=== PATIENT | female | born 1950 | race Two or more races ===

== ENCOUNTER 2018-04-16 07:28 | Day surgery (SDC) | payer OTHER ==
[~2018-04-16 07:28] MED LIST: CEFAZOLIN 1 GM INJ; DESFLURANE 15 MIN; DEXAMETHASONE 4 MG/ML 5 ML INJ; GLYCOPYRROLATE 0.4 MG INJ; NEOSTIGMINE 3 MG/3 ML SYRINGE; ONDANSETRON 4 MG INJ
[2018-04-16] MEDS ORDERED: FENTAnyl 50 MCG/ML VIAL (08:15)
[2018-04-16] MEDS ORDERED: MIDAZOLAM 1 MG/ML 2 ML INJ (08:15)
[2018-04-16] MEDS ORDERED: ROCURONIUM 50 MG INJ (08:16)
[2018-04-16] MEDS ORDERED: PROPOFOL 20 ML (08:16)
[2018-04-16] MEDS ORDERED: ROPIVACAINE 0.5 % 30 ML VIAL (08:16)
[2018-04-16] MEDS ORDERED: SUCCINYLCHOLINE CHLORIDE 100 MG/5 ML SYG IV (08:16)
[2018-04-16] MEDS ORDERED: LIDOCAINE 2% (SDV) 5 ML INJ (08:16)
[2018-04-16] MEDS ORDERED: METOCLOPRAMIDE 10 MG INJ (08:16)
[2018-04-16] MEDS: IPRATROPIUM (NEB) 0.5 MG/2.5 ML AMP HHN (08:40)
[2018-04-16] MEDS: LEVALBUTEROL (NEB) 1.25 MG/0.5 ML AMP HHN (08:40)
[2018-04-16] MEDS ORDERED: IPRATROPIUM (NEB) 0.5 MG/2.5 ML AMP HHN (09:30)
[2018-04-16] MEDS ORDERED: LABETALOL HCL 20MG INJ IV (09:30)
[2018-04-16] MEDS ORDERED: DIPHENHYDRAMINE 50 MG INJ IV (09:30)
[2018-04-16] MEDS ORDERED: HYDROmorphONE 1 MG/5 ML IV SYRINGE IV (09:30)
[2018-04-16] MEDS ORDERED: KETOROLAC 30 MG INJ IV (09:30)
[2018-04-16] MEDS ORDERED: hydrALAzine 20 MG INJ IV (09:30)
[2018-04-16] MEDS ORDERED: FENTAnyl 50 MCG/ML VIAL IV ×2 (09:30)
[2018-04-16] MEDS ORDERED: LEVALBUTEROL (NEB) 1.25 MG/0.5 ML AMP HHN (09:30)
[2018-04-16] MEDS: BUPIVACAINE 0.5%/EPI (SDV) 30 ML INJ (09:59)
[2018-04-16] MEDS ORDERED: morphine 2 MG INJ IV (10:30)
[2018-04-16] MEDS ORDERED: OXYCODONE/ACETAMINOPHEN (5/325) TAB PO (10:30)
[2018-04-16] MEDS ORDERED: ONDANSETRON 4 MG INJ IV (10:30)
[2018-04-16] MEDS: MEPERIDINE 25 MG INJ IV (10:55)
[2018-04-16] MEDS: ONDANSETRON 4 MG INJ IV (10:56)
[2018-04-16] MEDS: HYDROmorphONE 1 MG/5 ML IV SYRINGE IV ×3 (10:57→11:13)
[2018-04-16] MEDS: OXYCODONE/ACETAMINOPHEN (5/325) TAB PO (11:49)
== END 2018-04-16 12:43 | disposition home or self-care (01) ==
LOC: SDS 07:28
DX: K80.10 Calculus of gallbladder with chronic cholecystitis without obstruction (principal); I10 Essential (primary) hypertension; E78.5 Hyperlipidemia, unspecified; K21.9 Gastro-esophageal reflux disease without esophagitis; F17.210 Nicotine dependence, cigarettes, uncomplicated; R05 Cough
CPT/HCPCS: 47562; 82962; 88304; 94664

== ENCOUNTER 2018-09-26 11:11 | Emergency (ER) | payer OTHER ==
[2018-09-26 12:52] LABS: WHITE BLOOD COUNT 12.6 10^3/ul (4.8-10.8)
[2018-09-26 12:52] LABS: ABNORMAL IP MESSAGE 1; ADD MAN DIFF? NO; BASOPHIL # 0.1 10^3/ul (0.0-0.1); BASOPHILS % 0.8 % (0.0-2.0); EOSINOPHILS # 2.1 10^3/ul (0.0-0.5); HEMATOCRIT 36.3 % (37.0-47.0); HEMOGLOBIN 11.9 g/dl (12.0-16.0); LYMPHOCYTES # 3.4 10^3/ul (0.8-2.9); LYMPHOCYTES % 26.6 % (15.0-51.0); MEAN CORPUSCULAR HEMOGLOBIN 27.8 pg (29.0-33.0); MEAN CORPUSCULAR HGB CONC 32.8 g/dl (32.0-37.0); MEAN CORPUSCULAR VOLUME 84.8 fl (82.0-101.0); MEAN PLATELET VOLUME 11.4 fl (7.4-10.4); MONOCYTE # 0.6 10^3/ul (0.3-0.9); MONOCYTES % 4.6 % (0.0-11.0); NEUTROPHIL # 6.4 10^3/ul (1.6-7.5); NEUTROPHILS % 50.6 % (39.0-77.0); PLATELET COUNT 240 10^3/UL (140-415); RED BLOOD COUNT 4.28 10^6/ul (4.20-5.40); RED CELL DISTRIBUTION WIDTH 12.8 % (11.5-14.5)
[2018-09-26 12:56] LABS: POSITIVE DIFF @See below
[2018-09-26] MEDS: SOD CHLORIDE 0.9% 500 ML IV (12:56)
[2018-09-26 12:58] LABS: ADD UMIC YES; UR ASCORBIC ACID NEGATIVE (NEGATIVE); UR BILIRUBIN (Dip) NEGATIVE (NEGATIVE); UR BLOOD (Dip) NEGATIVE (NEGATIVE); UR CLARITY CLEAR (CLEAR); UR COLOR YELLOW (YELLOW); UR GLUCOSE (Dip) NEGATIVE (NEGATIVE); UR KETONES (Dip) NEGATIVE (NEGATIVE); UR LEUKOCYTE ESTERASE (Dip) 1+ Leu/ul (NEGATIVE); UR NITRITE (Dip) NEGATIVE (NEGATIVE); UR RBC 0 /HPF (0-5); UR SPECIFIC GRAVITY (Dip) 1.013 (1.003-1.030); UR TOTAL PROTEIN (Dip) NEGATIVE (NEGATIVE); UR UROBILINOGEN (Dip) NEGATIVE (NEGATIVE); UR WBC 1 /HPF (0-5)
[2018-09-26 13:25] LABS: ALBUMIN 4.5 g/dl (3.3-4.9); ALBUMIN/GLOBULIN RATIO 1.25; ANION GAP 11 (5-13); ASPARTATE AMINO TRANSFERASE 20 IU/L (15-46); BILIRUBIN,INDIRECT 0.8 mg/dl (0-1.1); BILIRUBIN,TOTAL 0.8 mg/dl (0.2-1.3); BLOOD UREA NITROGEN 15 mg/dl (7-20); CALCIUM 10.1 mg/dl (8.4-10.2); CARBON DIOXIDE 30 mmol/L (21-31); CHLORIDE 102 mmol/L (97-110); CREATININE 0.88 mg/dl (0.44-1.00); Estimated GFR > 60 mL/min (>60); GLUCOSE 160 mg/dl (70-220); POTASSIUM 4.3 mmol/L (3.5-5.1); SODIUM 143 mmol/L (135-144); TOTAL PROTEIN 8.1 g/dl (6.1-8.1)
[2018-09-26 13:28] LABS: ALANINE AMINOTRANSFERASE 40 IU/L (13-69); ALKALINE PHOSPHATASE 115 IU/L (42-121); LIPASE 77 U/L (23-300)
[2018-09-26] MEDS: IOHEXOL 300MG/ML 150 ML BTL (14:07)
[2018-09-26] MEDS: SOD CHLORIDE 0.9% 100 ML (14:07)
[2018-09-26 17:11] LABS: TROPONIN-I < 0.012 ng/ml (0.000-0.120)
== END 2018-09-26 17:55 | disposition home or self-care (01) ==
LOC: E/R 11:11
DX: N83.202 Unspecified ovarian cyst, left side (principal); I10 Essential (primary) hypertension; E11.9 Type 2 diabetes mellitus without complications; F17.210 Nicotine dependence, cigarettes, uncomplicated; E27.8 Other specified disorders of adrenal gland; Z79.82 Long term (current) use of aspirin; Z79.84 Long term (current) use of oral hypoglycemic drugs
CPT/HCPCS: 36415; 74177; 76856; 80053; 81001; 83690; 84484; 85025; 93005; 99285-25